=== PATIENT | male | born 1965 | race Caucasian/White ===

== ENCOUNTER 2024-09-11 08:19 | Inpatient (IN) | payer OTHER ==
--- NOTE | 2024-09-11 08:26 | ED ---
Neuro HPI - General Chief Complaint: Neuro Symptoms/Deficit Stated Complaint: Numbness Time Seen by Provider: 09/11/24 08:25 Source: patient, RN notes reviewed, old records reviewed Mode of arrival: EMS Limitations: no limitations - History of Present Illness Is the patient presenting with stroke symptoms?: Yes -: minutes(s) Initial Comments: This is a 5-year-old male presents today for evaluation of right-sided facial numbness and tingling he felt initially something not feeling right on the right side of his face and then noticed it was in his right arm right hand and right leg though symptoms are persisting into the right arm right leg and worsening in the face. Patient is not noted to have any neurological deficits on exam. No history of CVA. No headache. Patient's been feeling well lately symptoms occurred after workout today, patient does have history of high blood pressure and high cholesterol Location: right face, right arm, right leg Place: home (Patient was working out) Severity: mild Quality: numb, tingling Improves With: none Worsens With: none Context: gradual onset Associated Symptoms: denies other symptoms Treatments Prior to Arrival: none - Related Data Home Medications: Home Medications Medication Instructions Recorded Confirmed Aspirin EC [Ecotrin Low Dose] 81 mg PO DAILY 09/11/24 09/11/24 Simvastatin [Zocor] 20 mg PO DAILY 09/11/24 09/11/24 amLODIPine [Norvasc] 10 mg PO DAILY 09/11/24 09/11/24 Allergies/Adverse Reactions: Allergies Allergy/AdvReac Type Severity Reaction Status Date / Time cephalexin [From Keflex] Allergy Rash/Hives Verified 09/11/24 09:11 Penicillins Allergy Rash/Hives Verified 09/11/24 09:11 Review of Systems ROS Statement: Those systems with pertinent positive or pertinent negative responses have been documented in the HPI. ROS Other: All systems not noted in ROS Statement are negative. General Exam Limitations: no limitations General appearance: alert, in no apparent distress Head exam: Present: atraumatic, normocephalic, normal inspection Eye exam: Present: normal appearance, PERRL, EOMI. Absent: scleral icterus, conjunctival injection, periorbital swelling ENT exam: Present: normal exam, mucous membranes moist Neck exam: Present: normal inspection. Absent: tenderness, meningismus, lymphadenopathy Respiratory exam: Present: normal lung sounds bilaterally. Absent: respiratory distress, wheezes, rales, rhonchi, stridor Cardiovascular Exam: Present: regular rate, normal rhythm, normal heart sounds. Absent: systolic murmur, diastolic murmur, rubs, gallop, clicks GI/Abdominal exam: Present: soft, normal bowel sounds. Absent: distended, tenderness, guarding, rebound, rigid Extremities exam: Present: normal inspection, full ROM, normal capillary refill. Absent: tenderness, pedal edema, joint swelling, calf tenderness Back exam: Present: normal inspection Neurological exam: Present: alert, oriented X3, CN II-XII intact Psychiatric exam: Present: normal affect, normal mood Skin exam: Present: warm, dry, intact, normal color. Absent: rash Stroke MDM - Lab Data Result diagrams: 09/11/24 08:28 09/11/24 08:28 Lab Results 09/11/24 09/11/24 09/11/24 Range/Units 08:28 08:28 08:28 WBC 6.4 (3.8-10.6) k/uL RBC 5.43 (4.30-5.90) m/uL Hgb 16.5 (13.0-17.5) gm/dL Hct 49.0 (39.0-53.0) % MCV 90.1 (80.0-100.0) fL MCH 30.3 (25.0-35.0) pg MCHC 33.7 (31.0-37.0) g/dL RDW 12.5 (11.5-15.5) % Plt Count 213 (150-450) k/uL MPV 7.3 Neutrophils % 59 % Lymphocytes % 25 % Monocytes % 6 % Eosinophils % 6 % Basophils % 1 % Neutrophils # 3.8 (1.3-7.7) k/uL Lymphocytes # 1.6 (1.0-4.8) k/uL Monocytes # 0.4 (0-1.0) k/uL Eosinophils # 0.4 (0-0.7) k/uL Basophils # 0.1 (0-0.2) k/uL PT 10.5 (10.0-12.5) sec INR 0.9 (<1.2) APTT 22.4 (22.0-30.0) sec Sodium 139 (137-145) mmol/L Potassium 3.9 (3.5-5.1) mmol/L Chloride 102 (98-107) mmol/L Carbon Dioxide 28 (22-30) mmol/L Anion Gap 9 mmol/L BUN 21 H (9-20) mg/dL Creatinine 1.82 H (0.66-1.25) mg/dL Est GFR (CKD-EPI)AfAm 46 (>60 ml/min/1.73 sqM) Est GFR (CKD-EPI)NonAf 40 (>60 ml/min/1.73 sqM) Glucose 125 H (74-99) mg/dL Calcium 9.1 (8.4-10.2) mg/dL Total Bilirubin 0.6 (0.2-1.3) mg/dL AST 33 (17-59) U/L ALT 28 (4-49) U/L Alkaline Phosphatase 55 (38-126) U/L Creatine Kinase 247 H (55-170) U/L Troponin I (0.000-0.034) ng/mL Total Protein 7.3 (6.3-8.2) g/dL Albumin 4.8 (3.5-5.0) g/dL 09/11/24 Range/Units 08:28 WBC (3.8-10.6) k/uL RBC (4.30-5.90) m/uL Hgb (13.0-17.5) gm/dL Hct (39.0-53.0) % MCV (80.0-100.0) fL MCH (25.0-35.0) pg MCHC (31.0-37.0) g/dL RDW (11.5-15.5) % Plt Count (150-450) k/uL MPV Neutrophils % % Lymphocytes % % Monocytes % % Eosinophils % % Basophils % % Neutrophils # (1.3-7.7) k/uL Lymphocytes # (1.0-4.8) k/uL Monocytes # (0-1.0) k/uL Eosinophils # (0-0.7) k/uL Basophils # (0-0.2) k/uL PT (10.0-12.5) sec INR (<1.2) APTT (22.0-30.0) sec Sodium (137-145) mmol/L Potassium (3.5-5.1) mmol/L Chloride (98-107) mmol/L Carbon Dioxide (22-30) mmol/L Anion Gap mmol/L BUN (9-20) mg/dL Creatinine (0.66-1.25) mg/dL Est GFR (CKD-EPI)AfAm (>60 ml/min/1.73 sqM) Est GFR (CKD-EPI)NonAf (>60 ml/min/1.73 sqM) Glucose (74-99) mg/dL Calcium (8.4-10.2) mg/dL Total Bilirubin (0.2-1.3) mg/dL AST (17-59) U/L ALT (4-49) U/L Alkaline Phosphatase (38-126) U/L Creatine Kinase (55-170) U/L Troponin I <0.012 (0.000-0.034) ng/mL Total Protein (6.3-8.2) g/dL Albumin (3.5-5.0) g/dL - NIH Stroke Scale 1a. Level of Consciousness: (0) alert 1b. LOC Questions: (0) answers correctly 1c. LOC Commands: (0) performs tasks correctly 3. Visual: (0) no visual loss 4. Facial Palsy: (0) normal symmetrical movement 5a. Motor Arm Left: (0) no drift 5b. Motor Arm Right: (0) no drift 6a. Motor Leg Left: (0) no drift 6b. Motor Leg Right: (0) no drift 7. Limb Ataxia: (0) absent 8. Sensory: (1) mild/moderate sensory loss 9. Best Language: (0) no aphasia 10. Dysarthria: (0) normal 11. Extinction/Inattention: (0) no abnormality - Thrombolytic Inclusion/Exclusion Thrombolytic Inclusion Criteria: Symptom Onset < 4.5 h - Medical Decision Making 59 male to ER for evaluation of strokelike symptoms right-sided numbness weakness tingling paresthesias symptoms on the right side with elevated blood pressure on arrival hypertension, history of high cholesterol and hypertension, patient will be admitted to rule out CVA - Radiology Data Radiology results: report reviewed (CT brain and CTA head neck chest x-ray is negative for acute disease), image reviewed - EKG Data -: EKG Interpreted by Me (EKG is sinus 88 HI 145 QRS 100 QTc 418) Past Medical History Past Medical History: Hyperlipidemia, Hypertension History of Any Multi-Drug Resistant Organisms: None Reported, Unobtainable Past Psychological History: No Psychological Hx Reported Smoking Status: Never smoker Past Alcohol Use History: Unable to Obtain Past Drug Use History: Unable to Obtain Course Vital Signs 09/11/24 09/11/24 09/11/24 08:20 08:43 08:45 Temperature Pulse Rate 94 85 88 Respiratory 18 18 18 Rate Blood Pressure 186/98 159/88 O2 Sat by Pulse 98 98 98 Oximetry 09/11/24 09/11/24 08:59 09:21 Temperature 98 F Pulse Rate 86 77 Respiratory 18 18 Rate Blood Pressure 161/96 146/89 O2 Sat by Pulse 99 99 Oximetry - Reevaluation(s) Reevaluation #1: 09/11/24 09:56 Medical records reviewed Reevaluation #2: 09/11/24 09:57 Patient symptoms remain persistent with right-sided numbness and tingling, do not feel right, although improved Reevaluation #3: 09/11/24 09:57 Patient informed of results questions answered Reevaluation #4: Was pt. sent in by a medical professional or institution (, PA, BIOMATERIALS ENGINEER, urgent care, hospital, or correction...) When possible be specific @ -no Did you speak to anyone other than the patient for history (EMS, parent, family, police, friend...)? What history was obtained from this source @ -no Did you review nursing and triage notes (agree or disagree)? Why? @ -agree Are old charts reviewed (outside hosp., previous admission, EMS record, old EKG, old radiological studies, urgent care reports/EKG's, correction records)? Repo rt findings @ -yes Differential Diagnosis (chest pain, altered mental status, abdominal pain women, abdominal pain men, vaginal bleeding, weakness, fever, dyspnea, syncope, headache, dizziness, GI bleed, back pain, seizure, CVA, palpatations, mental health, musculoskeletal)? @ -prior EKG interpreted by me (3pts min.). @ -yes X-rays interpreted by me (1pt min.). @ -yes negative for acute disease CT interpreted by me (1pt min.). @ -no U/S interpreted by me (1pt. min.). @ -no What testing was considered but not performed or refused? (CT, X-rays, U/S, labs)? Why? @ -none What meds were considered but not given or refused? Why? @ -none Did you discuss the management of the patient with other professionals (professionals i.e. , PA, BIOMATERIALS ENGINEER, lab, RT, psych nurse, social studies teacher, marketing operations coordinator, te acher, custom protection officer, lining caser)? Give summary @ -no Was smoking cessation discussed for >3mins.? @ -no Was critical care preformed (if so, how long)? @ -no Were there social determinants of health that impacted care today? How? (Homelessness, low income, unemployed, alcoholism, drug addiction, transportation, low edu. Level, literacy, decrease access to med. care, senior living, rehab)? @ -none Was there de-escalation of care discussed even if they declined (Discuss DNR or withdrawal of care, Hospice)? DNR status @ -no What co-morbidities impacted this encounter? (DM, HTN, Smoking, COPD, CAD, Cancer, CVA, ARF, Chemo, Hep., AIDS, mental health diagnosis, sleep apnea, morbid obesity)? @ -none Was patient admitted / discharged? Hospital course, mention meds given and route, prescriptions, significant lab abnormalities, going to OR and other pertinent info. @ - Undiagnosed new problem with uncertain prognosis? @ -no Drug Therapy requiring intensive monitoring for toxicity (Heparin, Nitro, Insulin, Cardizem)? @ -no Were any procedures done? @ -no Diagnosis/symptom? @ - Acute, or Chronic, or Acute on Chronic? @ -Acute Uncomplicated (without systemic symptoms) or Complicated (systemic symptoms)? @ -Complicated Side effects of treatment? @ -no Exacerbation, Progression, or Severe Exacerbation? @ -exacerbation Poses a threat to life or bodily function? How? (Chest pain, [place], [place], pneumonia, PE, COPD, DKA, ARF, appy, cholecystitis, CVA, Diverticulitis, Homicidal, Suicidal, threat to staff... and all critical care pts) @ -yes Reevaluation #5: Differential CVA Ischemic stroke, hemorrhagic stroke, brain tumor, atypical migraine, Wernicke's encephalopathy, seizure, multiple sclerosis, meningitis, encephalitis, hypoglycemia, Guillain-Mae, electrolytes disturbance, myasthenia gravis.... This is not meant to be an all-inclusive list - Consultations Consultation #1: Spoke with [facility] who agrees to admit this patient Disposition Clinical Impression: Hypertension, Paresthesia Disposition: ADMITTED IP TO THIS HOSP Condition: Undetermined Is patient prescribed a controlled substance at d/c from ED?: No Referrals: Randall Escobedo MD [Primary Care Provider] - 1-2 days Time of Disposition: 10:00
[2024-09-11 08:39] LABS: Basophils # (A) 0.1 k/uL (0-0.2); Basophils % (A) 1 %; Eosinophils # (A) 0.4 k/uL (0-0.7); Eosinophils % (A) 6 %; HGB 16.5 gm/dL (13.0-17.5); Lymphocytes # (A) 1.6 k/uL (1.0-4.8); Lymphocytes % (A) 25 %; MCH 30.3 pg (25.0-35.0); MCHC 33.7 g/dL (31.0-37.0); MCV 90.1 fL (80.0-100.0); Mean Platelet Volume 7.3; Monocytes # (A) 0.4 k/uL (0-1.0); Monocytes % (A) 6 %; Neutrophils # (A) 3.8 k/uL (1.3-7.7); Neutrophils % (A) 59 %; Platelet Count 213 k/uL (150-450); RBC 5.43 m/uL (4.30-5.90); RDW 12.5 % (11.5-15.5); WBC 6.4 k/uL (3.8-10.6)
--- NOTE | 2024-09-11 08:48 | XR ---
EXAMINATION TYPE: XR chest 2V DATE OF EXAM: 09/11/2024 8:41 AM COMPARISON: None CLINICAL INDICATION: Male, 59 years old with confusion, history of altered mental status, , TECHNIQUE: PA and lateral views FINDINGS: Heart normal size. Aorta and pulmonary vasculature within normal limits. Hazy mid lung densities rela ting to overlying soft tissue. No consolidation or pleural effusion. IMPRESSION: No acute cardiopulmonary process. [facility], Workstation: [facility], 09/11/2024 8:46 AM
--- NOTE | 2024-09-11 08:51 | CT ---
EXAMINATION TYPE: CODE STROKE: CT brain wo contr CT DLP: 1231 mGycm, Automated exposure control for dose reduction was used. DATE OF EXAM: 09/11/2024 8:41 AM COMPARISON: None. CLINICAL INDICATION:Male, 59 years old with history of Neuro deficit, acute, stroke suspected, RIGHT SIDED WEAKNESS TECHNIQUE: Brain: Multiple axial CT images of the brain were obtained without IV contrast. . Coronal and sagitta l reformats reviewed. FINDINGS: Brain: Extra-axial spaces: No abnormal extra-axial fluid collections. Ventricular system: Within normal limits Cerebral parenchyma: No acute intraparenchymal hemorrhage or mass effect. The estrada-white junction is well differentiated. Cerebellum: CSF fluid collection within the posterior fossa representing a yamil-cisterna magna versus arachnoid cyst Mass effect: No evidence of midline shift. Intracranial vasculature: unremarkable Soft tissues: Normal. Calvarium/osseous structures: No depressed skull fracture. Paranasal sinuses and mastoid air cells: Clear Visualized orbits: Orbital contents are intact. IMPRESSION: No acute intracranial process. [facility], , 09/11/2024 8:48 AM
[2024-09-11 08:53] LABS: ALT 28 U/L (4-49); AST 33 U/L (17-59); Albumin 4.8 g/dL (3.5-5.0); Alkaline Phosphatase 55 U/L (38-126); Anion Gap 9 mmol/L; Blood Urea Nitrogen 21 mg/dL (9-20); Calcium 9.1 mg/dL (8.4-10.2); Carbon Dioxide 28 mmol/L (22-30); Chloride 102 mmol/L (98-107); Creatine Kinase 247 U/L (55-170); Glucose 125 mg/dL (74-99); Potassium 3.9 mmol/L (3.5-5.1); Sodium 139 mmol/L (137-145); Total Bilirubin 0.6 mg/dL (0.2-1.3); Total Protein 7.3 g/dL (6.3-8.2)
--- NOTE | 2024-09-11 08:56 | CT ---
EXAMINATION TYPE: CT angio head neck CT DLP: 824.3 mGycm, Automated exposure control for dose reduction was used. DATE OF EXAM: 09/11/2024 8:49 AM COMPARISON: CT brain of the same date. CLINICAL INDICATION:Male, 59 years old with history of Neuro deficit, acute, stroke suspected; PHH, R IGHT SIDED WEAKNESS, TECHNIQUE: Axially acquired helical CT angiogram of the head and neck was obtained with contrast util izing 75 cc of Isovue-370 administered intravenously. Axial images are supplemented with 3D reconstru ctions which were post-processed at an independent workstation. NASCET criteria used. FINDINGS: CTA HEAD: No evidence of acute intracranial hemorrhage, mass effect, or midline shift. The ventricles, sulci, a nd cisterns are unremarkable. The visualized portions of the internal carotid arteries, middle cerebral arteries, anterior cerebral arteries, and posterior cerebral arteries are patent. Hypoplastic appearance of the bilateral audit reviewer ior communicating arteries. The basilar and vertebral arteries are patent. CTA NECK: Right Carotid System: The common carotid artery and external carotid artery are patent. The carotid bifurcation demonstrate s no evidence of hemodynamically significant stenosis. The remaining portions of the internal carotid artery demonstrate normal size without significant narrowing. Left Carotid System: The common carotid artery and external carotid artery are patent. The carotid bifurcation demonstrate s no evidence of hemodynamically significant stenosis. The remaining portions of the internal carotid artery demonstrate normal size without significant narrowing. Vertebral arteries are patent without evidence hemodynamically significant stenosis. There is a three-vessel aortic arch. The origins of the great vessels are patent. No evidence of hemo dynamically significant stenosis. IMPRESSION: 1. No evidence of dissection of the cervical internal carotid arteries or vertebral arteries or any e vidence of significant stenosis at the carotid bifurcations. 2. No evidence of high-grade stenosis or intracranial aneurysm. [facility], , 09/11/2024 8:54 AM
[2024-09-11] MEDS: SODIUM CHLORIDE 0.9% 1,000 ML IV STA ×2 (08:59→10:46)
[2024-09-11 09:00] LABS: African American GFR (CKD) 46 (>60 ml/min/1.73 sqM); INR 0.9 (<1.2); Non-African American GFR(CKD) 40 (>60 ml/min/1.73 sqM); Partial Thromboplastin Time 22.4 sec (22.0-30.0); Prothrombin Time 10.5 sec (10.0-12.5)
[2024-09-11] MEDS: LABETALOL 5 MG/ML VIAL MDV IVP STA (09:23)
[2024-09-11] MEDS: ASPIRIN 325 MG TAB PO STA (10:45)
[2024-09-11] MEDS: SODIUM CHLORIDE 0.9% 1,000 ML IV SCH (10:45)
--- NOTE | 2024-09-11 13:21 | CA ---
Transthoracic Echo Report Name: Rashaad Maldonado Age: 59 Gender: M : 1965 Exam Date: 09/11/2024 10:19 Exam Location: [facility] Ht (in): 68 Wt (lb): 225 Ordering Physician: Henry Fierro DO Attending/Referring Phys: [id number], Vadim Parking Technician Keri Dick RDCS Procedure CPT: Indications: Thrombus Cardiac Hx: Technical Quality: Good Contrast 1: Agitated Saline Total Dose (mL): 10 Contrast 2: Total Dose (mL): MEASUREMENTS (Male / Female) Normal Values 2D ECHO LV Diastolic Diameter PLAX 5.0 cm 4.2 - 5.9 / 3.9 - 5.3 cm LV Systolic Diameter PLAX 3.3 cm IVS Diastolic Thickness 0.8 cm 0.6 - 1.0 / 0.6 - 0.9 cm LVPW Diastolic Thickness 0.9 cm 0.6 - 1.0 / 0.6 - 0.9 cm LV Relative Wall Thickness 0.3 LVOT Diameter 2.6 cm LV Diastolic Volume MOD BP 113.6 cm??? 67 - 155 / 56 - 104 cm??? LV Systolic Volume MOD BP 45.0 cm??? 22 - 58 / 19 - 49 cm??? LV Ejection Fraction MOD BP 60.3 % >= 55 % LV Cardiac Index MOD BP 2467.9 cm???/min???m??? LV Diastolic Volume MOD 4C 88.8 cm??? LV Systolic Volume MOD 4C 37.7 cm??? LV Ejection Fraction MOD 4C 57.5 % LV Cardiac Index MOD 4C 1837.6 cm???/min???m??? LV Diastolic Length 4C 8.4 cm LV Systolic Length 4C 7.2 cm LV Diastolic Volume MOD 2C 136.1 cm??? LV Systolic Volume MOD 2C 49.7 cm??? LV Ejection Fraction MOD 2C 63.5 % LV Cardiac Index MOD 2C 3109.4 cm???/min???m??? LV Diastolic Length 2C 9.0 cm LV Systolic Length 2C 6.5 cm LA Volume 62.5 cm??? 18 - 58 / 22 - 52 cm??? LA Volume Index 27.8 cm???/m??? 16 - 28 cm???/m??? Ascending Aorta Diameter 3.6 cm DOPPLER AV Peak Velocity 155.4 cm/s AV Peak Gradient 9.7 mmHg AV Mean Velocity 106.9 cm/s AV Mean Gradient 5.2 mmHg AV Velocity Time Integral 31.1 cm LVOT Peak Velocity 120.7 cm/s LVOT Peak Gradient 5.8 mmHg LVOT Velocity Time Integral 25.1 cm LVOT Stroke Volume 130.5 cm??? LVOT Stroke Volume Index 60.7 ml/m??? LVOT Cardiac Index 4697.2 cm???/min???m??? AV Area Cont Eq vti 4.2 cm??? AV Area Cont Eq pk 4.0 cm??? MV Area PHT 3.9 cm??? Mitral E Point Velocity 63.5 cm/s Mitral A Point Velocity 57.8 cm/s Mitral E to A Ratio 1.1 MV Deceleration Time 196.3 ms PV Peak Velocity 82.7 cm/s PV Peak Gradient 2.7 mmHg FINDINGS Left Ventricle Left ventricular ejection fraction is estimated at 55-60 %. Left ventricular cavity size normal. Left ventricular wall thickness normal. No obvious regional wall motion abnormalities. Right Ventricle Normal right ventricular size and function. Unable to estimate the right ventricular systolic pressure. Right Atrium Mild right atrial dilatation. Negative agitated saline bubble study for right to left shunt. Left Atrium Mildly increased left atrial volume. Mildly increased left atrial area. Mitral Valve Structurally normal mitral valve. No mitral stenosis, regurgitation or prolapse. Aortic Valve Trileaflet aortic valve. No aortic valve stenosis or regurgitation. Tricuspid Valve Structurally normal tricuspid valve. No tricuspid stenosis. Trace tricuspid regurgitation. Pulmonic Valve Pulmonic valve not well visualized. No pulmonic stenosis. No pulmonic regurgitation. Pericardium No pericardial effusion. Aorta Normal size aortic root and proximal ascending aorta. CONCLUSIONS Normal LV size and systolic function. No significant abnormality on the Doppler exam. No pericardial effusion Previewed by: Dr. Rebekah Messer MD (Electronically Signed) Final Date: 11 September 2024 13:20
[2024-09-11] MEDS: CLOPIDOGREL 75 MG TAB PO SCH (15:04)
--- NOTE | 2024-09-11 15:41 | P.HPIM ---
History of Present Illness H&P Date: 09/11/24 This is a pleasant 59-year-old male who presented to the emergency department with right-sided weakness that reports started in his face and traveled down to his lower extremity and continues to report right lower extremity tingling and decreased sensation. Patient reports he follows with Dr. Escobedo out of [facility] with past medical history of hypertension and reports borderline high cholesterol although reports he takes an aspirin daily as well as statin therapy. Patient reports he was working out and the symptoms started just before 7 AM this morning. Patient denies any smoking history or any other previous TIA or stroke. No tPA was given. In the ER x-ray shows no acute c ardiopulmonary process, EKG shows sinus rhythm, brain CT shows no acute intracranial process and angiography shows no evidence of dissection of the cervical internal carotid arteries or vertebral arteries or any evidence of significant stenosis at the carotid bifurcations with no evidence of high-grade stenosis or intracranial aneurysm. 2D echo showing a normal EF and systolic function with an EF of 55 to 60% with no significant abnormality and no pericardial effusion noted. Patient was admitted for neurology evaluation. REVIEW OF SYSTEMS: CONSTITUTIONAL: No fever, no malaise, no fatigue. HEENT: No recent visual problems or hearing problems. Denied any sore throat. CARDIOVASCULAR: No chest pain, orthopnea, PND, no palpitations, no syncope. PULMONARY: No shortness of breath, no cough, no hemoptysis. GASTROINTESTINAL: No diarrhea, no nausea, no vomiting, no abdominal pain. NEUROLOGICAL: No headaches, no weakness, no numbness. Patient did report some tingling of the right face upper and lower extremity and has resolved other than some tingling on the top of the right foot HEMATOLOGICAL: Denies any bleeding or petechiae. GENITOURINARY: Denies any burning micturition, frequency, or urgency. MUSCULOSKELETAL/RHEUMATOLOGICAL: Denies any joint pain, swelling, or any muscle pain. ENDOCRINE: Denies any polyuria or polydipsia. The rest of the 14-point review of systems is negative. PHYSICAL EXAMINATION: GENERAL: The patient is alert and oriented x3, not in any acute distress. Well developed, well nourished. Obese HEENT: Pupils are round and equally reacting to light. EOMI. No scleral icterus. No conjunctival pallor. Normocephalic, atraumatic. No pharyngeal erythema. No thyromegaly. CARDIOVASCULAR: S1 and S2 present. No murmurs, rubs, or gallops. PULMONARY: Chest is clear to auscultation, no wheezing or crackles. ABDOMEN: Soft, nontender, nondistended, normoactive bowel sounds. No palpable organomegaly. MUSCULOSKELETAL: No joint swelling or deformity. EXTREMITIES: No cyanosis, clubbing, or pedal edema. NEUROLOGICAL: Gross neurological examination did not reveal any focal deficits. Teenage Program Director strength upper extremities 5/5, lower extremities 5/5 SKIN: No rashes. Assessment: Right side facial numbness with tingling acute onset with concerns of TIA versus CVA OMAR, likely ATN with a creatinine of 1.82 History of hypertension History of hyperlipidemia Obesity with a BMI of 34.2 Plan: Patient with right-sided weakness and numbness of the face right upper extremity and lower extremity being evaluated by neurology with consult pending at this time CT did not show any acute findings and CT angio within normal limits. Awaiting neurology recommendations The patient is continued on aspirin along with statin therapy and will discuss further with neurology regarding possible Plavix need Follow-up on repeat labs and continue with gentle hydration for now and monitor kidney functions Replace electrolytes per protocol Await PT/OT therapy evaluation Will discuss with neurology regarding possible discharge planning in the next 24-48 hours The impression and plan of care has been dictated by Alma Walker, Nurse Practitioner as directed. Dr. Chuckie MD I have performed a history and examination and MDM of this patient, discussed the same with the dictator, and agree with the dictator's assessment and plan as written ,documented as a scribe. Based on total visit time, I have performed more than 50% of the visit. Past Medical History Past Medical History: Hyperlipidemia, Hypertension History of Any Multi-Drug Resistant Organisms: None Reported, Unobtainable Past Psychological History: No Psychological Hx Reported Smoking Status: Never smoker Past Alcohol Use History: Unable to Obtain Past Drug Use History: Unable to Obtain Medications and Allergies Home Medications Medication Instructions Recorded Confirmed Type Aspirin EC [Ecotrin Low Dose] 81 mg PO DAILY 09/11/24 09/11/24 History Simvastatin [Zocor] 20 mg PO DAILY 09/11/24 09/11/24 History amLODIPine [Norvasc] 10 mg PO DAILY 09/11/24 09/11/24 History Allergies Allergy/AdvReac Type Severity Reaction Status Date / Time cephalexin [From Keflex] Allergy Rash/Hives Verified 09/11/24 09:11 Penicillins Allergy Rash/Hives Verified 09/11/24 09:11 Physical Exam Vitals: Vital Signs Temp Pulse Resp BP Pulse Ox 09/11/24 11:46 78 18 140/87 98 09/11/24 11:00 87 18 141/81 99 09/11/24 10:23 80 18 152/98 98 09/11/24 09:21 77 18 146/89 99 09/11/24 08:59 98 F 86 18 161/96 99 09/11/24 08:45 88 18 159/88 98 09/11/24 08:43 85 18 98 09/11/24 08:20 94 18 186/98 98 Intake and Output 09/10/24 09/11/24 09/11/24 22:59 06:59 14:59 Other: Weight 102.058 kg Results CBC & Chem 7: 09/11/24 08:28 09/11/24 08:28 Labs: Abnormal Lab Results - Last 24 Hours (Table) 09/11/24 Range/Units 08:28 BUN 21 H (9-20) mg/dL Creatinine 1.82 H (0.66-1.25) mg/dL Glucose 125 H (74-99) mg/dL Creatine Kinase 247 H (55-170) U/L
[2024-09-11 17:07] VITALS: RESP 16
--- NOTE | 2024-09-11 17:32 | P.CNNES ---
History of Present Illness Consult date: 09/11/24 Requesting physician: Henry Fierro Reason for Consult: cva History of Present Illness: This is a 59-year-old gentleman who presented Emergency Department because of numbness tingling over the right upper and lower extremities including the face. He is accompanied with his . It seems that he was at the gym and at 6:58 PM today he noticed initially some tingling and maybe numbness that started over her right V2 distribution and then he stated that it started progressing to the right upper and lower extremity. He feels he is having tingling and numbness. He denies any weakness. Denies any visual disturbance. Denies any difficulty swallowing. Denies any history of strokes in the past. Patient is on low-dose aspirin 81 mg daily.Denies any atrial fibrillation or flutter. He denies tobacco use or any illicit drug use. He socially drinks alcohol. It seems the patient has significant family history of cardiac issues and his brother had cardiac issues in his early 50s. Patient does have underlying history of hypertension as well as he is on statin as a preventative especially with his significant family history of cardiac issues but denies any high cholesterol. Some of the workup during this hospital visit consisted of: Patient is 1.82 CK is 247 I reviewed the rest of the lab workup CT head is reported as no acute intracranial process. I personally reviewed the CT and agree with the report there is no acute or subacute stroke. CT angiography of the head and neck is reported as no evidence of dissection of cervical internal carotid artery or vertebral artery or any evidence of si gnificant stenosis at the carotid bifurcation. No evidence of high-grade stenosis or intracranial aneurysm. Review of Systems As per HPI. Past Medical History Past Medical History: Hyperlipidemia, Hypertension History of Any Multi-Drug Resistant Organisms: None Reported, Unobtainable Past Psychological History: No Psychological Hx Reported Smoking Status: Never smoker Past Alcohol Use History: Unable to Obtain Past Drug Use History: Unable to Obtain Medications and Allergies Home Medications Medication Instructions Recorded Confirmed Type Aspirin EC [Ecotrin Low Dose] 81 mg PO DAILY 09/11/24 09/11/24 History Simvastatin [Zocor] 20 mg PO DAILY 09/11/24 09/11/24 History amLODIPine [Norvasc] 10 mg PO DAILY 09/11/24 09/11/24 History Allergies Allergy/AdvReac Type Severity Reaction Status Date / Time cephalexin [From Keflex] Allergy Rash/Hives Verified 09/11/24 09:11 Penicillins Allergy Rash/Hives Verified 09/11/24 09:11 Physical Examination - Vital Signs Vital Signs: Vital Signs Temp Pulse Resp BP Pulse Ox 09/11/24 15:30 68 16 137/78 98 09/11/24 14:39 75 18 132/75 97 09/11/24 11:46 78 18 140/87 98 09/11/24 11:00 87 18 141/81 99 09/11/24 10:23 80 18 152/98 98 09/11/24 09:21 77 18 146/89 99 09/11/24 08:59 98 F 86 18 161/96 99 09/11/24 08:45 88 18 159/88 98 09/11/24 08:43 85 18 98 09/11/24 08:20 94 18 186/98 98 Intake and Output 09/11/24 09/11/24 09/11/24 06:59 14:59 22:59 Other: Weight 102.058 kg GENERAL: The patient is lying in bed and is not in acute distress. NEUROLOGICAL: Higher mental function: The patient is awake, alert, oriented to self, place and time. Patient is following commands. No aphasia and no neglect. Cranial nerves: The pupils are round, equal and reactive to light and accommodation. Visual vasques are full to confrontation throughout. Extraocular movement is intact no nystagmus is noted. Facial sensation is decrease to touch on the right side. The facial strength is normal throughout. Hearing is normal bilaterally to hand rub. Tongue is midline and moved [id number] without any difficulty. No dysarthria is noted. Shoulder shrug is normal bilaterally. Motor: Gait is normal. The strength is 5 over 5 throughout. Normal tone and bulk. Cerebellum: Normal finger to nose heel to macias bilaterally. Sensation: Sensation is decreased to touch over the right upper and lower. Reflexes (right/left): 2+ throughout. Plantars are downgoing bilaterally. Results - Laboratory Findings CBC and BMP: 09/11/24 08:28 09/11/24 08:28 Abnormal Lab Findings: Abnormal Labs 09/11/24 08:28 BUN 21 H Creatinine 1.82 H Glucose 125 H Creatine Kinase 247 H Assessment and Plan Assessment: This is a 59-year-old gentleman who presented emergency department because of numbness and tingling over the right upper lower extremity and face. His symptoms began at 6:58 AM today. Current NIH stroke scale is 1. Likely acute ischemic stroke. Current NIH stroke scale is a 1. No IV thrombolytic since low NIH stroke scale and the risk outweigh the benefit. As well as when ED if team evaluate him they felt that his NIH stroke scale was 0 on presentation. Acute kidney injury Hypertension Significant family history of cardiac issues and it seems at young age Plan: Patient was started on aspirin 325 mg daily by the ED team. Prior to this the patient was on aspirin 81 mg. I started the patient on Plavix 75 mg daily. He was started on Lipitor 80 mg nightly by the ED team I ordered MRI of the brain I reviewed the CT head with Dr. Max Huang and he feels patient has incidental Christian Cisterna Magna. Lipid panel is ordered and is pending 2D echo was ordered and official report is pending Continue neurochecks Cardiac monitoring Recommend permissive hypertension for 24 to 48 hours PT OT and LOAD BLOCKER are consulted Defer the rest of the medical management to primary and other specialist For DVT prophylaxis patient is ambulatory The plan discussed with the patient and his was at bedside Thank you for the consultation Time with Patient: Greater than 30
[2024-09-11] MEDS: ATORVASTATIN 80 MG TAB PO SCH (20:32)
[2024-09-12] MEDS ORDERED: ONDANSETRON 4 MG/2 ML VIAL IVP PRN (00:58)
[2024-09-12] MEDS ORDERED: ACETAMINOPHEN TAB 325 MG TAB PO PRN (01:00)
[2024-09-12 06:52] LABS: African American GFR (CKD) 84 (>60 ml/min/1.73 sqM); Anion Gap 6 mmol/L; Blood Urea Nitrogen 11 mg/dL (9-20); Carbon Dioxide 29 mmol/L (22-30); Chloride 102 mmol/L (98-107); Glucose 110 mg/dL (74-99); Non-African American GFR(CKD) 73 (>60 ml/min/1.73 sqM); Potassium 4.2 mmol/L (3.5-5.1); Sodium 137 mmol/L (137-145)
[2024-09-12] MEDS: ASPIRIN 325 MG TAB PO SCH (08:18)
[2024-09-12] MEDS: PANTOPRAZOLE 40 MG TABLET PO SCH (08:18)
[2024-09-12] MEDS: amLODIPine 10 MG TAB PO SCH (08:18)
--- NOTE | 2024-09-12 09:39 | US ---
EXAMINATION TYPE: US carotid duplex BILAT DATE OF EXAM: 09/12/2024 COMPARISON: NONE CLINICAL INDICATION: Male, 59 years old with history of Right sided facial numbness; Additional History: .... TECHNIQUE: Grayscale, color Doppler and spectral Doppler evaluation of the bilateral carotid systems and vertebral arteries. Indirect Doppler criteria was utilized. FINDINGS: EXAM MEASUREMENTS: RIGHT: Peak Systolic Velocity (PSV) cm/sec ----- Right CCA: 111 ----- Right ICA: 101 ----- Right ECA: 134 ICA/CCA ratio: 0.9 RIGHT: End Diastole cm/sec ----- Right CCA: 22 ----- Right ICA: 27 ----- Right ECA: 21 LEFT: Peak Systolic Velocity (PSV) cm/sec ----- Left CCA: 100 ----- Left ICA: 132 ----- Left ECA: 120 ICA/CCA ratio: 1.3 LEFT: End Diastole cm/sec ----- Left CCA: 23 ----- Left ICA: 31 ----- Left ECA: 17 VERTEBRALS (direction of flow): Right Vertebral: Antegrade Left Vertebral: Antegrade Rhythm: Normal TIE TAMPER NOTES: No intimal thickening or plaque seen on the right. Some hypoechoic plaque noted in the left carotid bulb. Elevated velocities seen within right ECA and Left ICA. IMPRESSION: 1. Measurements may reflect a moderate (50-69%) proximal left ICA stenosis. 2. No hemodynamically significant internal carotid artery stenosis on either side. Criteria for Assigning % of Stenosis / Diameter reduction (Estimation based on the indirect measurements of the internal carotid artery velocities (ICA PSV). 1. Normal (no stenosis)=ICA PSV < 125 cm/s: ratio < 2.0: ICA EDV<40 cm/s. 2. Less than 50% stenosis=ICA PSV < 125 cm/s: ratio < 2.0: ICA EDV<40 cm/s. 3. 50 to 69% stenosis=ICA PSV of 125 to 230 cm/s: ration 2.0 ? 4.0: ICA EDV 40-100 cm/s. 4. Greater than 70% stenosis to near occlusion= ICA PSV > 230 cm/s: ratio > 4.0: ICA EDV > 100 cm/s. 5. Near occlusion= ICA PSV velocities may be low or undetectable: variable ratio and ICA EDV. 6. Total occlusion=unable to detect flow. [facility], , 09/12/2024 9:37 AM
--- NOTE | 2024-09-12 11:26 | MR ---
INDICATION: Patient age:Male; 59 years old; Reason for study: stroke. right sided paresthesia; PHH. COMPARISON: CT brain 09/11/2024, CTA head and neck 09/11/2024. TECHNIQUE: Multi planar, multi sequence imaging was performed through the brain without the intraveno us administration of contrast. FINDINGS: The estrada-white junctions, ventricular system, basal cisterns appear unremarkable. Incidental posterio r fossa yamil cisterna magna. Age-appropriate cerebral volume. There are foci of restricted diffusion identified within the left thalamus. There is corresponding T2/FLAIR hyperintense signal. Intracrania l arterial flow voids are maintained. Midline structures show no abnormality. Couple of high T2/FLAIR signal intensity foci seen within the periventricular and subcortical white matter.. The susceptibil ity weighted images do not reveal any evidence for micro-hemorrhage. The bone marrow signal is within normal limits. The paranasal sinuses and globes are unremarkable. IMPRESSION: 1. Acute/subacute ischemia within the left thalamus. 2. Few nonspecific white matter foci, likely related to small vessel ischemic disease. A [place] level critical message alert has been initiated for Marty Khanna MD via the [employer] Critical Results System on 09/12/2024 11:24 AM. This message alert has been sent to Marty Khanna MD via the preferences provided by the clinician for the receipt of Radiology Critical Findings. [place] e ID [id number]. [facility], , 09/12/2024 11:24 AM
[2024-09-12 12:53] VITALS: BP 155/88; PULSE 79; TEMP 98.1
--- NOTE | 2024-09-12 13:07 | P.GSCN ---
History of Present Illness Consult date: 09/12/24 Reason for Consult: Carotid stenosis, recent CVA Requesting physician: Shady Devlin History of present illness: This is a pleasant 59-year-old male who had presented to the emergency department yesterday evening with complaints of numbness and tingling to his right face and body including his upper and lower extremities. His past medical history includes obstructive sleep apnea on CPAP, hypertension and hyperlipidem ia. Home meds included simvastatin 20 mg daily, aspirin 81 mg daily and amlodipine 10 mg daily. Patient states he takes aspirin just because he thought it was a good idea. No history of coronary artery disease however does have a family history of coronary artery disease and a brother who had a massive heart attack at age 52. He denies any tobacco use or former tobacco use, no drug history and only occasional alcohol use. Patient was concerned he was having a stroke and 911 was called and he was brought in for further evaluation. He had a CT of the brain with no acute findings. He had a CT angiogram head and neck that reported no hemodynamically significant carotid stenosis bilaterally. He continues to have symptoms of tingling which he describes as "prickly" but not numb. He states yesterday the numbness on the right side of the body was enough that he was not able to feel much pressure or touch. States he was still able to walk and use his extremities that he lost strength. He denied any visual disturbances, no difficulty with speech but states that he felt possibly his hearing in his right ear was not as sharp. Today he had further testing including carotid Doppler study that reported measurements may reflect moderate 50 to 69% proximal left ICA stenosis with no hemodynamically significant internal carotid artery stenosis on either side. He also underwent MRI of the brain that does report an acute/subacute ischemic stroke within the left thalamus. Vascular surgery was consulted by neurology for carotid stenosis with recent CVA. Patient was given loading dose of Plavix 300 mg and now currently on Plavix 75 mg daily, aspirin 81 mg daily and atorvastatin 80 mg at at bedtime. Patient currently denies any shortness of breath or chest pain. Again no weakness however still has tingling on the right side of his body including upper abdomen. Review of Systems A 14 point review systems was completed all pertinent positives and negatives as stated in the HPI. Past Medical History Past Medical History: Hyperlipidemia, Hypertension History of Any Multi-Drug Resistant Organisms: None Reported, Unobtainable Past Psychological History: No Psychological Hx Reported Smoking Status: Never smoker Past Alcohol Use History: Unable to Obtain Past Drug Use History: Unable to Obtain Medications and Allergies Home Medications Medication Instructions Recorded Confirmed Type Aspirin EC [Ecotrin Low Dose] 81 mg PO DAILY 09/11/24 09/11/24 History Simvastatin [Zocor] 20 mg PO DAILY 09/11/24 09/11/24 History amLODIPine [Norvasc] 10 mg PO DAILY 09/11/24 09/11/24 History Allergies Allergy/AdvReac Type Severity Reaction Status Date / Time cephalexin [From Keflex] Allergy Rash/Hives Verified 09/11/24 09:11 Penicillins Allergy Rash/Hives Verified 09/11/24 09:11 Surgical - Exam Vital Signs Pulse Resp BP Pulse Ox 94 18 186/98 98 09/11/24 08:20 09/11/24 08:20 09/11/24 08:20 09/11/24 08:20 General appearance: The patient is alert, oriented, appears in no acute distress. HET: Head is normocephalic and atraumatic. Pupils are equal and reactive. Neck: Supple. No carotid bruit bilaterally. Heart: Regular. Lungs: Equal expansion, normal respiratory effort. Abdomen: Soft, nontender, nondistended. Extremities: Normal skin color and turgor. Palpable radial pulses bilaterally. Neurological: Alert and oriented x 3. Patient has facial symmetry, tongue protrudes midline, speech is fluent. Strength and sensation are grossly intact. Results - Labs 09/11/24 08:28 09/12/24 05:20 Abnormal Lab Results - Last 24 Hours (Table) 09/12/24 Range/Units 05:20 Glucose 110 H (74-99) mg/dL Diabetes panel 09/12/24 Range/Units 05:20 Sodium 137 (137-145) mmol/L Potassium 4.2 (3.5-5.1) mmol/L Chloride 102 (98-107) mmol/L Carbon Dioxide 29 (22-30) mmol/L BUN 11 (9-20) mg/dL Creatinine 1.10 (0.66-1.25) mg/dL Glucose 110 H (74-99) mg/dL Calcium 9.0 (8.4-10.2) mg/dL Calcium panel 01/30/25 Range/Units 05:20 Calcium 9.0 (8.4-10.2) mg/dL Pituitary panel 09/12/24 Range/Units 05:20 Sodium 137 (137-145) mmol/L Potassium 4.2 (3.5-5.1) mmol/L Chloride 102 (98-107) mmol/L Carbon Dioxide 29 (22-30) mmol/L BUN 11 (9-20) mg/dL Creatinine 1.10 (0.66-1.25) mg/dL Glucose 110 H (74-99) mg/dL Calcium 9.0 (8.4-10.2) mg/dL Adrenal panel 09/12/24 Range/Units 05:20 Sodium 137 (137-145) mmol/L Potassium 4.2 (3.5-5.1) mmol/L Chloride 102 (98-107) mmol/L Carbon Dioxide 29 (22-30) mmol/L BUN 11 (9-20) mg/dL Creatinine 1.10 (0.66-1.25) mg/dL Glucose 110 H (74-99) mg/dL Calcium 9.0 (8.4-10.2) mg/dL - Imaging Comments: CTA head and neck reports no evidence of dissection of the cervical internal carotid arteries or vertebral arteries or any evidence of significant stenosis at the carotid bifurcations. No evidence of high-grade stenosis or intracranial aneurysm. Imaging was independently reviewed and agree there is no hemo dynamically significant internal carotid artery stenosis. Carotid duplex: Right ICA PSV 101, ICA/CCA ratio 0.9 left ICA PSV 132, ICA/CCA ratio 1.3 Impression states measurements may reflect mild a moderate 50 to 69% proximal left ICA stenosis. No hemodynamically significant internal carotid artery stenosis on either side. Carotid duplex independently reviewed without any evidence of hemodynamically significant stenosis. Bilateral internal carotid artery stenosis less than 50%. Brain MRI reports acute/subacute ischemia within the left thalamus. Few nonspecific white matter foci, likely related to small vessel ischemic disease Echocardiogram reports normal LV size and systolic function. No significant abnormality on the Doppler exam. No pericardial effusion. Brain CT: No acute intracranial process Assessment and Plan Assessment: 1. No hemodynamically significant carotid stenosis bilaterally 2. Acute/subacute ischemia in left thalamus 3. Right sided numbness and tingling 4. History of hypertension 5. History of hyperlipidemia 6. Obstructive sleep apnea on CPAP 7. Family history of coronary artery disease Plan: 1. Would recommend continuing medical management with statin and aspirin 81 mg daily 2. No carotid surgical intervention indicated 3. Plavix per recommendations from neurology 4. Findings reviewed with both patient and his at the bedside. Recommend outpatient follow-up in 1 year for carotid surveillance. 5. Continue with further workup and recommendations from neurology Thank you for this consultation, we will sign off at this time. The impression and plan of care has been dictated as directed. I performed a history and examination of this patient, discussed the same with the dictator. I agree with the dictator's note ,documented as a scribe. Any additional findings or plans will be noted.
[2024-09-12 15:10] LABS: Chol/HDL Ratio 2.67 Ratio; LDL Cholesterol,Calculated 75.3 mg/dL (0.0-131.0)
--- NOTE | 2024-09-12 16:40 | P.PN ---
Subjective Progress Note Date: 09/12/24 Follow-up with the patient and he feels his numbness is better but he continues to have tingling over the right side. Denies any new neurological issues. Objective - Vital Signs Vital signs: Vital Signs Temp 98.1 F 09/12/24 12:00 Pulse 79 09/12/24 12:00 Resp 16 09/12/24 12:00 BP 155/88 09/12/24 12:00 Pulse Ox 97 09/12/24 12:00 FiO2 Intake & Output 09/11/24 09/12/24 09/12/24 18:59 06:59 18:59 Intake Total 240 Balance 240 Weight 102.058 kg Intake: Oral 240 - Exam GENERAL: The patient is lying in bed and is not in acute distress. NEUROLOGICAL: Higher mental function: The patient is awake, alert, oriented to self, place and time. Patient is following commands. No aphasia and no neglect. Cranial nerves: The pupils are round, equal and reactive to light and accommodation. Visual vasques are full to confrontation throughout. Extraocular movement is intact no nystagmus is noted. Facial sensation is decrease to touch on the right side. The facial strength is normal throughout. Hearing is normal bilaterally to hand rub. Tongue is midline and moved [id number] without any difficulty. No dysarthria is noted. Shoulder shrug is normal bilaterally. Motor: Gait is normal. The strength is 5 over 5 throughout. Normal tone and b ulk. Cerebellum: Normal finger to nose heel to macias bilaterally. Sensation: Sensation is decreased to touch over the right upper and lower. Reflexes (right/left): 2+ throughout. Plantars are downgoing bilaterally. Some of the workup during this hospital visit consisted of: CK is 247 Lipid panel: Triglyceride is 61, cholesterol is 140, LDL is 75 and HDL is 52 CT head is reported as no acute intracranial process. I personally reviewed the CT and agree with the report there is no acute or subacute stroke. CT angiography of the head and neck is reported as no evidence of dissection of cervical internal carotid artery or vertebral artery or any evidence of significant stenosis at the carotid bifurcation. No evidence of high-grade stenosis or intracranial aneurysm. Carotid duplex is reported as measurement may reflect moderate 50-69 proximal left ICA stenosis. No hemodynamically significant internal carotid artery stenosis on either side 2D echo is reported as normal left ventricular size and systolic function. No significant abnormality on the Doppler exam. No pericardial effusion. MRI of the brain is reported as acute/subacute ischemia within the left thalamus. Few nonspecific white matter foci, likely related to small vessel ischemic disease. - Labs CBC & Chem 7: 09/11/24 08:28 09/12/24 05:20 Labs: Abnormal Lab Results - Last 24 Hours (Table) 09/12/24 Range/Units 05:20 Glucose 110 H (74-99) mg/dL Assessment and Plan Assessment: This is a 59-year-old gentleman who presented emergency department because of numbness and tingling over the right upper lower extremity and face. His symptoms began at 6:58 AM today. Current NIH stroke scale is 1. Acute ischemic stroke and has lacunar stroke in left thalamus. Current NIH stroke scale is a 1. No IV thrombolytic since low NIH stroke scale and the risk outweigh the benefit. Risk factors for stroke is HTN. Acute kidney injury Hypertension Significant family history of cardiac issues and it seems at young age Plan: Patient was started on aspirin 325 mg daily by the ED team. Prior to this the patient was on aspirin 81 mg. I started the patient on Plavix 75 mg daily. The patient to be on dual antiplatelets for 21 days and after 21 days stop aspirin but continue Plavix indefinitely. Is on Lipitor 80 mg nightly by the ED team I reviewed the CT head with Dr. Max Huang and he feels patient has incidental Christian Cisterna Magna. Recommend a 30-day event monitor Continue neurochecks Cardiac monitoring PT OT and [employer] are consulted On the carotid duplex is reported as 50 to 69% stenosis and vascular surgery team was consulted and they did not feel it was less than 50%. Defer the rest of the medical management to primary and other specialist For DVT prophylaxis patient is ambulatory Upon discharge, recommend the patient to follow-up with a neurologist as an outpatient within 2 to 3 weeks. The plan discussed with the patient and his was at bedside and primary team. Otherwise no additional neurological workup. Will sign off. Please reconsult if needed. Time with Patient: Less than 30
== END 2024-09-12 15:00 | disposition home or self-care (01) | DRG 64 ==
LOC: EC 08:19 → 3SCARD 09:55
PROVIDERS: ADMIT Hospitalist; ATTEND Hospitalist
DX: I63.81 Other cerebral infarction due to occlusion or stenosis of small artery (principal); N17.0 Acute kidney failure with tubular necrosis; G81.91 Hemiplegia, unspecified affecting right dominant side; E66.9 Obesity, unspecified; Z68.34 Body mass index [BMI] 34.0-34.9, adult; I10 Essential (primary) hypertension; E78.00 Pure hypercholesterolemia, unspecified; G47.33 Obstructive sleep apnea (adult) (pediatric); R29.701 NIHSS score 1; Z79.82 Long term (current) use of aspirin; Z79.899 Other long term (current) drug therapy; Z88.0 Allergy status to penicillin; Z88.1 Allergy status to other antibiotic agents
CPT/HCPCS: 36415; 70450; 70496; 70498; 70551; 71046; 80048; 80053; 80061; 82550; 84484; 85025; 85610; 85730; 93005; 93306; 93880; 96360; 96361; 99285